=== PATIENT | female | born 1940 | race Caucasian/White ===

== ENCOUNTER 2017-01-20 08:42 | Outpatient (CLI) | payer MEDICARE, BC ==
[2017-01-20 18:18] LABS: HEMOGLOBIN A1C 0.61 g/dL
[2017-01-20 18:20] LABS: ALBUMIN/GLOBULIN RATIO 1.5 (1.0-2.2); BILIRUBIN,TOTAL 0.7 mg/dL (0.2-1.0); CALCIUM 9.4 mg/dL (8.5-10.3); CREATININE 0.6 mg/dL (0.4-1.0); POTASSIUM 4.9 mmol/L (3.5-5.0); TOTAL PROTEIN 7.1 g/dL (6.7-8.2)
== END 2017-01-20 08:43 | disposition home or self-care (01) ==
LOC: LAB.F 08:42
PROVIDERS: ATTEND Internal Medicine
DX: Z00.00 Encounter for general adult medical examination without abnormal findings (principal); Z13.9 Encounter for screening, unspecified
CPT/HCPCS: 36415; 80053; 83036; 84443

== ENCOUNTER 2018-10-01 11:10 | Day surgery (SDC) | payer MEDICARE, BC ==
[2018-10-01] MEDS ORDERED: LIDO GARGLE 30 ML BOTTLE ONE (11:38)
[2018-10-01] MEDS ORDERED: LACTATED RINGERS 1,000 ML IV ONE ×2 (11:47→11:50)
[2018-10-01] MEDS ORDERED: MIDAZOLAM 2 MG/2 ML VIAL IVP ONE (11:50)
[2018-10-01] MEDS ORDERED: fentaNYL 100 MCG/2 ML VIAL IVP ONE (11:50)
[2018-10-01] MEDS ORDERED: BENZOCAINE/TETRACAINE/BUTAMBEN 20 GM TOP ONE (11:55)
[2018-10-01] MEDS ORDERED: LIDO GARGLE 30 ML BOTTLE TOP ONE (11:55)
[2018-10-01 13:22] VITALS: BP 132/80
== END 2018-10-01 11:11 | disposition home or self-care (01) ==
LOC: SDS 11:10
PROVIDERS: ATTEND Surgery
PROC: 0DB98ZX Excision of Duodenum, Via Natural or Artificial Opening Endoscopic, Diagnostic (ICD-10-PCS; principal; 2018-10-01 12:45)
DX: Z09 Encounter for follow-up examination after completed treatment for conditions other than malignant neoplasm (principal); Z87.19 Personal history of other diseases of the digestive system; K57.12 Diverticulitis of small intestine without perforation or abscess without bleeding; K44.9 Diaphragmatic hernia without obstruction or gangrene; K21.9 Gastro-esophageal reflux disease without esophagitis; K58.9 Irritable bowel syndrome, unspecified; Z87.11 Personal history of peptic ulcer disease
CPT/HCPCS: 43239; A9270; J7120

== ENCOUNTER 2018-11-22 11:13 | Outpatient (CLI) | payer MEDICARE, BC ==
--- NOTE | 2018-11-22 16:05 | XRAY Report ---
Reason: PLEURODYMIA Procedure Date: 11/22/2018 Accession Number: [id number] / [id number] Procedure: XR - Chest 2 View X-Ray CPT Code: 98655 FULL RESULT: EXAM: CHEST RADIOGRAPHY EXAM DATE: 11/22/2018 11:31 AM. CLINICAL HISTORY: PLEURODYNIA. COMPARISON: None. TECHNIQUE: 2 views. FINDINGS: Lungs/Pleura: No focal opacities evident. No pleural effusion. No pneumothorax. Normal volumes. Mediastinum: Atherosclerotic thoracic aortic calcifications. Other: Anterior mid thoracic spine osteophytes. IMPRESSION: No consolidation evident. RADIA
== END 2018-11-22 11:14 | disposition home or self-care (01) ==
LOC: DI 11:13
PROVIDERS: ATTEND Nurse Practitioner Family
DX: R07.81 Pleurodynia (principal)
CPT/HCPCS: 71046

== ENCOUNTER 2019-01-10 09:00 | Outpatient (CLI) | payer MEDICARE, BC ==
--- NOTE | 2019-01-10 11:56 | CARDIAC PROCEDURE NOTE ---
DATE OF SERVICE: 01/10/2019 Physician: Puja Bush MD, [facility] INDICATION: Dyspnea. RESTING EKG: Normal sinus rhythm, frequent PVCs, occasional ventricular couplets, left atrial and right atrial enlargement, horizontal ST depressions of 0.5-1 mm in leads II, III, aVF, and V5 and V6. The stress test procedure was aborted (because of the abnormal resting EKG). SUMMARY: 1. Abnormal resting EKG. 2. No imaging study was ordered with this test. Therefore, because of ST- segment abnormalities present at baseline, monitoring the EKG alone, would create an interpretation of a Non-diagnostic test. 3. The PCP was contacted regarding the above, and recommendations were given to order stress testing with an imaging modality. Therefore, no exercise stressing was done today. The patient was informed of this plan. TD: 01/10/2019 11:44 MTDChadwick
== END 2019-01-10 09:01 | disposition home or self-care (01) ==
LOC: DI 09:00
PROVIDERS: ATTEND Nurse Practitioner Family
DX: R06.00 Dyspnea, unspecified (principal); R94.31 Abnormal electrocardiogram [ECG] [EKG]
CPT/HCPCS: 93016; 93017; 93018

== ENCOUNTER 2019-02-07 13:39 | Outpatient (CLI) | payer MEDICARE, BC ==
--- NOTE | 2019-02-07 15:02 | CARDIAC PROCEDURE NOTE ---
DATE OF SERVICE: 02/07/2019 Physician: Puja Bush MD, [facility] INDICATION: Abnormal EKG, dyspnea, palpitations. CARDIAC RISK FACTORS: Postmenopausal status, family history of heart disease, possibly elevated cholesterol and hypertension, although she is not on treatment for them. PROCEDURE: After signing informed consent, the patient underwent a Alejandro- protocol treadmill stress test with Echo imaging at rest and peak. RESTING HEART RATE: 82. PEAK HEART RATE: 150 (102% predicted maximum heart rate for age). RESTING BLOOD PRESSURE: 142/80. PEAK BLOOD PRESSURE: 160/80. The patient exercised for 3 minutes and 56 seconds on a Alejandro-protocol stress test. The patient was "little short of breath" at stage I and very short of breath at stage II. Oxygen saturation was 96% at stage I and dropped to 82% on room air at peak. Saturation improved to 98% on room air within 1 minute of recovery. The patient described no chest pain. She stated she felt her palpitations continuously. There was no lightheadedness or dizziness. RESTING EKG: Normal sinus rhythm, left atrial and right atrial enlargement, occasional ventricular couplets, frequent PVCs, scooping ST segment depressions in leads II, III, aVF, and V4 through V6. EKG AT PEAK: This could not be interpreted due to baseline motion. EKG at 43 seconds of recovery showed frequent PVCs, frequent ventricular couplets, deeper, but upsloping ST segment depressions in V5 and V6, unchanged abnormal ST segments in leads II, III, aVF, and V4. At 2 min of Recovery, she had a 3-beat and 5-beat run of VTach. At 3 min of Recovery, she had a 7-beat run of monomorphic VTach. Ventricular ectopy decreased to her baseline amount, after 3 min of recovery. SUMMARY: 1. Abnormal resting EKG. 2. Increased ventricular ectopy with exercise. 3. Oxygen desaturation occurs with exercise. 4. Borderline abnormal EKG changes to suggest coronary ischemia at peak. 5. Echo images reported separately. RECOMMENDATIONS: 24-hour Holter monitor is advised and evaluation of oxygen desaturation. cc: OSMAN Sotelo TD: 02/07/2019 14:53 [facility]
== END 2019-02-07 13:40 | disposition home or self-care (01) ==
LOC: DI 13:39
PROVIDERS: ATTEND Nurse Practitioner Family
DX: I49.3 Ventricular premature depolarization (principal); R06.09 Other forms of dyspnea; R94.31 Abnormal electrocardiogram [ECG] [EKG]
CPT/HCPCS: 93350

== ENCOUNTER 2023-09-07 12:46 | Outpatient (CLI) | payer BC, MEDICARE ==
--- NOTE | 2023-09-07 15:16 | DEXA Report ---
PROCEDURE: Dexa Spine and/or Hip INDICATIONS: MENAPAUSAL TECHNIQUE: Dual energy x-ray absorptiometry (DXA) was performed on a [employer] System. Regions measur ed are the AP Spine, femoral neck, and if needed forearm. COMPARISON: None FINDINGS: Lumbar Spine: Bone Mineral Density: 1.145 g/cm/cm,T score: -0.3. Left Femoral Neck: Bone Mineral Density: 0.786 g/cm/cm, T score: -1.8. Left Hip: Bone Mineral Density: 0.897 g/cm/cm,T score: -0.1. (T score greater or equal to -1.0: NORMAL) (T score from -1.1 to -2.4: OSTEOPENIA) (T score less than or equal to -2.5 to: OSTEOPOROSIS) Impression: By WHO criteria, this patient has moderate osteopenia in the femoral neck. Patients with diagnosis of osteoporosis or osteopenia should have regular bone mineral density assess ment. For those eligible for Medicare, routine testing is allowed once every 2 years. Testing frequ ency can be increased for patients who have rapidly progressing disease or for those who are receivin g medical therapy to restore bone mass. Reviewed by: Gricelda Rogers MD on 09/07/2023 3:15 PM PDT Approved by: Gricelda Rogers MD on 09/07/2023 3:15 PM PDT Station ID: [id number]
== END 2023-09-07 12:47 | disposition home or self-care (01) ==
LOC: DI 12:46
PROVIDERS: ATTEND Physician Assistant Medical
DX: Z78.0 Asymptomatic menopausal state (principal); M85.88 Other specified disorders of bone density and structure, other site

== ENCOUNTER 2023-11-08 14:40 | Outpatient (CLI) | payer MEDICARE ==
[2023-11-08 20:02] LABS: BASOPHILS # (AUTO) 0.1 10^3/uL (0.0-0.1); BASOPHILS % (AUTO) 0.9 %; EOSINOPHILS # (AUTO) 0.1 10^3/uL (0.0-0.7); EOSINOPHILS % (AUTO) 0.9 %; HCT - HEMATOCRIT 41.5 % (37.0-47.0); HGB - HEMOGLOBIN 13.1 g/dL (12.0-16.0); LYMPHOCYTES # (AUTO) 1.9 10^3/uL (1.5-3.5); LYMPHOCYTES % (AUTO) 29.7 %; MEAN CORPUSCULAR HEMOGLOBIN 30.2 pg (27.0-31.0); MEAN CORPUSCULAR HGB CONC 31.6 g/dL (32.0-36.0); MEAN CORPUSCULAR VOLUME 95.6 fL (81.0-99.0); MEAN PLATELET VOLUME 11.7 fL (7.9-10.8); MONOCYTES # (AUTO) 0.5 10^3/uL (0.0-1.0); MONOCYTES % (AUTO) 8.1 %; NEUTROPHILS # (AUTO) 3.9 10^3/uL (1.5-6.6); NEUTROPHILS % (AUTO) 60.2 %; PLT - PLATELET COUNT 244 10^3/uL (130-450); RED BLOOD COUNT 4.34 10^6/uL (4.20-5.40); RED CELL DISTRIBUTION WIDTH 13.7 % (12.0-15.0); WHITE BLOOD COUNT 6.4 x10^3/uL (4.8-10.8)
[2023-11-08 20:22] LABS: ALBUMIN 4.5 g/dL (3.2-5.5); ALBUMIN/GLOBULIN RATIO 1.9 (1.0-2.2); ALKALINE PHOSPHATASE 79 IU/L (42-121); ALT ALANINE AMINOTRANSFERASE 10 IU/L (10-60); AST ASPARTATE AMINOTRANSFERASE 15 IU/L (10-42); BILIRUBIN,TOTAL 0.5 mg/dL (0.2-1.0); BUN - BLOOD UREA NITROGEN 17 mg/dL (6-20); CALCIUM 9.9 mg/dL (8.5-10.3); CARBON DIOXIDE - CO2 29 mmol/L (21-32); CHLORIDE 102 mmol/L (101-111); CHOL/HDL RATIO 3.4 (<4.4); CHOLESTEROL 222 mg/dL; CREATININE 0.7 mg/dL (0.6-1.3); GFR - MDRD 80 (>89); GLUCOSE 102 mg/dL (74-104); HDL CHOLESTEROL 66 mg/dL; POTASSIUM 4.1 mmol/L (3.5-4.5); SODIUM 137 mmol/L (135-145); TOTAL PROTEIN 6.9 g/dL (6.4-8.9)
[2023-11-08 20:43] LABS: ESTIMATED AVERAGE GLUCOSE 123 mg/dL (70-100); HEMOGLOBIN A1c% 5.9 % (4.27-6.07)
[2023-11-08 21:21] LABS: THYROID STIMULATING HORMONE 1.86 uIU/mL (0.34-5.60)
[2023-11-08 22:46] LABS: LDL CHOLESTEROL,CALCULATED 143 mg/dL; LDL/HDL RATIO 2.2 (<4.4); TRIGLYCERIDES 65 mg/dL (48-352); VLDL CHOLESTEROL 13 mg/dL
== END 2023-11-08 14:41 | disposition home or self-care (01) ==
LOC: LAB.S 14:40
PROVIDERS: ATTEND Physician Assistant Medical
DX: Z13.9 Encounter for screening, unspecified (principal); K64.9 Unspecified hemorrhoids
CPT/HCPCS: 36415; 80053; 80061; 83036; 83721; 84443; 85025

== ENCOUNTER 2023-11-27 22:52 | Emergency (ER) | payer MEDICARE ==
[2023-11-27 23:23] LABS: BASOPHILS # (AUTO) 0.1 10^3/uL (0.0-0.1); BASOPHILS % (AUTO) 0.6 %; EOSINOPHILS % (AUTO) 0.2 %; HCT - HEMATOCRIT 39.3 % (37.0-47.0); HGB - HEMOGLOBIN 12.9 g/dL (12.0-16.0); LYMPHOCYTES # (AUTO) 1.8 10^3/uL (1.5-3.5); LYMPHOCYTES % (AUTO) 14.4 %; MEAN CORPUSCULAR HEMOGLOBIN 30.7 pg (27.0-31.0); MEAN CORPUSCULAR HGB CONC 32.8 g/dL (32.0-36.0); MEAN CORPUSCULAR VOLUME 93.6 fL (81.0-99.0); MEAN PLATELET VOLUME 10.8 fL (7.9-10.8); MONOCYTES # (AUTO) 0.9 10^3/uL (0.0-1.0); MONOCYTES % (AUTO) 7.5 %; NEUTROPHILS # (AUTO) 9.4 10^3/uL (1.5-6.6); NEUTROPHILS % (AUTO) 76.9 %; PLT - PLATELET COUNT 241 10^3/uL (130-450); RED CELL DISTRIBUTION WIDTH 14.1 % (12.0-15.0); WHITE BLOOD COUNT 12.2 x10^3/uL (4.8-10.8)
[2023-11-27 23:28] LABS: INR 1.3 (0.8-1.2); PT - PROTHROMBIN TIME 14.2 secs (9.9-12.6)
[2023-11-27 23:37] LABS: ALBUMIN 4.3 g/dL (3.2-5.5); ALBUMIN/GLOBULIN RATIO 2.9 (1.0-2.2); BILIRUBIN,TOTAL 0.4 mg/dL (0.2-1.0); CALCIUM 9.9 mg/dL (8.5-10.3); CREATININE 0.6 mg/dL (0.6-1.3); POTASSIUM 4.3 mmol/L (3.5-4.5); TOTAL PROTEIN 5.8 g/dL (6.4-8.9)
--- NOTE | 2023-11-28 00:58 | ED Physician Documentation ---
PD HPI GI BLEED - Stated complaint Stated Complaint: ABD PX/GI - Chief complaint Chief Complaint: Abd Pain - History obtained from History obtained from: Patient - Additional information Additional information: HPI from patient. Patient complains of 2 episodes of dark, black tarry stool this evening. She denies any pain including abdominal pain. Denies nausea, vomiting. Denies fever. Patient's past medical history includes irritable bowel syndrome, hiatal hernia. Patient had her tetanus shot yesterday and wonders if the stool color changes are related to that. She says she has a history many years ago of GI bleeding. She denies any liver problems, denies heavy/regular alcohol use.Patient does not take any blood-thinning medication PD PAST MEDICAL HISTORY - Past Medical History Cardiovascular: Hypertension, High cholesterol Respiratory: Pneumonia Endocrine/Autoimmune: None GI: GERD, GI bleed, Ulcers : None HEENT: Chronic vision loss Psych: None Musculoskeletal: Osteoarthritis Derm: None - Past Surgical History General: Appendectomy /[employer]: Hysterectomy, Oophrectomy - Present Medications Home Medications: Ambulatory Orders Medication Instructions Recorded Confirmed Lansoprazole [Prevacid] 15 mg PO BID 09/28/18 11/27/23 Clobetasol 0.05% Oint [Temovate 1 applic TOP DAILY 11/27/23 11/27/23 0.05% Oint] Loperamide [Imodium] 2 cap PO DAILY PRN 11/27/23 11/27/23 Losartan Potassium 1 tab PO DAILY 11/27/23 11/27/23 estradioL vaginal [Estrace vaginal] 1 applic TOP DAILY 11/27/23 11/27/23 - Allergies Allergies/Adverse Reactions: Allergies Allergy/AdvReac Type Severity Reaction Status Date / Time codeine AdvReac Unknown Verified 11/27/23 23:02 - Social History Does the pt smoke?: No Smoking Status: Never smoker Does the pt drink ETOH?: No ETOH Use: Wine - Immunizations Immunizations are current?: Yes PD ED PE NORMAL - Vitals Vital signs reviewed: Yes - General General: Alert and oriented X 3, No acute distress, Well developed/nourished - Cardiac Cardiac: RRR, No murmur - Respiratory Respiratory: No respiratory distress, Clear bilaterally - Abdomen Abdomen: Normal bowel sounds, Soft, Non tender, Non distended - Derm Derm: Normal color Results - Vitals Vitals: Vital Signs - 24 hr 11/27/23 11/28/23 22:54 01:25 Temperature 36.2 C L 36.8 C Heart Rate 50 L 53 L Respiratory 18 18 Rate Blood Pressure 151/68 H 146/75 H O2 Saturation 96 98 Oxygen O2 Source Room air - Labs Labs: Laboratory Tests 11/27/23 11/27/23 11/27/23 23:15 23:15 23:15 WBC 12.2 H RBC 4.20 Hgb 12.9 Hct 39.3 MCV 93.6 MCH 30.7 MCHC 32.8 RDW 14.1 Plt Count 241 MPV 10.8 Neut # (Auto) 9.4 H Lymph # (Auto) 1.8 [place] # (Auto) 0.9 Eos # (Auto) 0.0 Baso # (Auto) 0.1 Absolute Nucleated RBC 0.00 Nucleated RBC % 0.0 PT 14.2 H INR 1.3 H Sodium Potassium Chloride Carbon Dioxide Anion Gap BUN Creatinine Estimated GFR (MDRD) Glucose Calcium Total Bilirubin AST ALT Alkaline Phosphatase Total Protein Albumin Globulin Albumin/Globulin Ratio Blood Type O POSITIVE Antibody Screen NEGATIVE 11/27/23 23:15 WBC RBC Hgb Hct MCV MCH MCHC RDW Plt Count MPV Neut # (Auto) Lymph # (Auto) [place] # (Auto) Eos # (Auto) Baso # (Auto) Absolute Nucleated RBC Nucleated RBC % PT INR Sodium 138 Potassium 4.3 Chloride 103 Carbon Dioxide 29 Anion Gap 6.0 BUN 40 H Creatinine 0.6 Estimated GFR (MDRD) 96 Glucose 156 H Calcium 9.9 Total Bilirubin 0.4 AST 13 ALT 10 Alkaline Phosphatase 71 Total Protein 5.8 L Albumin 4.3 Globulin 1.5 L Albumin/Globulin Ratio 2.9 H Blood Type Antibody Screen PD Medical Decision Making - ED course Complexity details: reviewed results, re-evaluated patient, considered differential, d/w patient ED course: . Normal hemoglobin (12.9). This is without significant change when compared to 13.1 on a 11/08/2023 outpatient draw. More relevant is an elevated BUN (40) with normal creatinine (0.6). Her BUN was 17 on the 11/08/2023 draw. This pattern of high BUN with normal creatinine would be would support the suspicion of UGIB. However, given her stable H&H, further testing can take place in the outpatient setting. I reviewed these test results with her. I emphasized that she will need further testing, particularly to trend her H&H as well as her kidney function tests. Along these lines, I instructed her to contact her PCP in the morning to arrange for next available appointment for reevaluation. She says she might be able to get in to see her GI sooner, which would be ideal. Certainly, should she have any sudden increase in her black and/or bloody stool, or if she develops ne w/concerning signs/symptoms (such as abdominal pain, vomiting blood, lightheadedness, dyspnea), she is encouraged to return immediately to the emergency department. Departure - Departure Disposition: 01 Home, Self Care Clinical Impression: Gastrointestinal bleed Qualifiers: GI bleed type/associated pathology: unspecified gastrointestinal hemorrhage type Qualified Code(s): K92.2 - Gastrointestinal hemorrhage, unspecified Condition: Good Instructions: ED Bleed UGI Stable Comments: At this time, there are no concerning findings on justine's blood tests. Most relevantly, your red blood cell levels (hemoglobin and hematocrit) are within normal range. Your kidney function tests were in an abnormal pattern which is sometimes seen with upper gastrointestinal bleeding (as blood travels from the stomach or duodenum through the small and large intestines, it gets broken down into a black, tar-like substance and some of the byproducts of red cell breakdown get absorbed back into the blood stream. One such substance is blood urea nitrogen (BUN), and your BUN level was elevated tonight despite a normal creatinine (creatinine is another kidney test)). Thus, this is another piece of evidence that would suggest an upper GI bleed, but your red blood cell levels being normal argues against brisk bleeding or bleeding to a dangerous extent. Contact your primary care provider when the office is next open to arrange for next available appointment. They will likely recommend repeating some of these tests, in particular your red blood cell levels as well as your kidney function tests, in the next few days for comparative purposes. If you continue to have dark, black tarry stool and/or develop maroon or bloody stool, and/or your red blood cell levels decrease on repeat and/or your BUN goes up with a normal creatinine any of these would be cause for concern for ongoing bleeding and might prompt further testing such as an upper and lower endoscopy. Please realize the amount of change of these parameters would also influence the acuity of the situation (gradual changes would be approached differently than sudden, dramatic changes, for example) Forms: PCP List Discharge Date/Time: 11/28/23 01:30
[2023-11-28 01:54] VITALS: BP 146/75; O2SAT 98
== END 2023-11-28 01:30 | disposition home or self-care (01) ==
LOC: ED 22:52
DX: K92.2 Gastrointestinal hemorrhage, unspecified (principal); I10 Essential (primary) hypertension; E78.00 Pure hypercholesterolemia, unspecified; Z79.899 Other long term (current) drug therapy
CPT/HCPCS: 36415; 80053; 85025; 85610; 86850; 86900; 86901; 99283

== ENCOUNTER 2023-12-01 13:20 | Outpatient (CLI) | payer MEDICARE ==
[2023-12-01 19:52] LABS: BASOPHILS # (AUTO) 0.1 10^3/uL (0.0-0.1); BASOPHILS % (AUTO) 0.8 %; EOSINOPHILS # (AUTO) 0.1 10^3/uL (0.0-0.7); HCT - HEMATOCRIT 33.9 % (37.0-47.0); HGB - HEMOGLOBIN 10.7 g/dL (12.0-16.0); LYMPHOCYTES % (AUTO) 31.5 %; MEAN CORPUSCULAR HGB CONC 31.6 g/dL (32.0-36.0); MEAN PLATELET VOLUME 11.8 fL (7.9-10.8); MONOCYTES # (AUTO) 0.6 10^3/uL (0.0-1.0); MONOCYTES % (AUTO) 9.5 %; NEUTROPHILS # (AUTO) 3.6 10^3/uL (1.5-6.6); NEUTROPHILS % (AUTO) 56.9 %; PLT - PLATELET COUNT 224 10^3/uL (130-450); RED BLOOD COUNT 3.57 10^6/uL (4.20-5.40); WHITE BLOOD COUNT 6.3 x10^3/uL (4.8-10.8)
[2023-12-01 20:21] LABS: ALBUMIN 4.3 g/dL (3.2-5.5); ALBUMIN/GLOBULIN RATIO 1.9 (1.0-2.2); BILIRUBIN,TOTAL 0.4 mg/dL (0.2-1.0); CALCIUM 9.6 mg/dL (8.5-10.3); CREATININE 0.6 mg/dL (0.6-1.3); POTASSIUM 4.7 mmol/L (3.5-4.5); TOTAL PROTEIN 6.6 g/dL (6.4-8.9)
== END 2023-12-01 13:21 | disposition home or self-care (01) ==
LOC: LAB.S 13:20
PROVIDERS: ATTEND Registered Nurse
DX: K64.4 Residual hemorrhoidal skin tags (principal); Z87.19 Personal history of other diseases of the digestive system
CPT/HCPCS: 36415; 80053; 85025

== ENCOUNTER 2024-01-10 12:13 | Outpatient (CLI) | payer MEDICARE ==
[2024-01-10 12:27] LABS: HCT - HEMATOCRIT 37.5 % (37.0-47.0); HGB - HEMOGLOBIN 11.4 g/dL (12.0-16.0); MEAN CORPUSCULAR HEMOGLOBIN 27.6 pg (27.0-31.0); MEAN CORPUSCULAR HGB CONC 30.4 g/dL (32.0-36.0); MEAN CORPUSCULAR VOLUME 90.8 fL (81.0-99.0); MEAN PLATELET VOLUME 10.5 fL (7.9-10.8); RED BLOOD COUNT 4.13 10^6/uL (4.20-5.40); RED CELL DISTRIBUTION WIDTH 14.1 % (12.0-15.0); WHITE BLOOD COUNT 6.5 x10^3/uL (4.8-10.8)
[2024-01-10 13:09] LABS: FERRITIN 5.6 ng/mL (11.0-306.8)
== END 2024-01-10 12:14 | disposition home or self-care (01) ==
LOC: LAB 12:13
PROVIDERS: ATTEND Registered Nurse
DX: K92.1 Melena (principal)
CPT/HCPCS: 36415; 82728; 83540; 84466; 85027

== ENCOUNTER 2024-02-22 08:00 | Outpatient (CLI) | payer MEDICARE ==
--- NOTE | 2024-02-22 13:56 | XRAY Report ---
PROCEDURE: Chest 2V INDICATIONS: PALPITATIONS TECHNIQUE: 2 views of the chest were acquired. COMPARISON: Chest x-ray 11/22/2018 FINDINGS: Aortic arch calcifications. The heart size and cardiomediastinal silhouette are within normal limits. There is no focal lung consolidation, pneumothorax, or pleural effusion. No acute osseous abnormality. Diffuse idiopathic skeletal hyperostosis of the thoracic spine. IMPRESSION: No acute cardiothoracic process. Reviewed by: Miguel Angel Calloway MD on 02/22/2024 1:54 PM PDT Approved by: Miguel Angel Calloway MD on 02/22/2024 1:54 PM PDT Station ID: [id number]
== END 2024-02-22 23:59 | disposition home or self-care (01) ==
LOC: DI.S 08:00
PROVIDERS: ATTEND Physician Assistant
DX: R00.2 Palpitations (principal)

== ENCOUNTER 2024-02-23 10:52 | Outpatient (CLI) | payer MEDICARE ==
[2024-02-23 11:07] LABS: BASOPHILS # (AUTO) 0.1 10^3/uL (0.0-0.1); EOSINOPHILS # (AUTO) 0.1 10^3/uL (0.0-0.7); EOSINOPHILS % (AUTO) 0.9 %; HCT - HEMATOCRIT 37.6 % (37.0-47.0); HGB - HEMOGLOBIN 11.4 g/dL (12.0-16.0); LYMPHOCYTES # (AUTO) 1.8 10^3/uL (1.5-3.5); LYMPHOCYTES % (AUTO) 26.3 %; MEAN CORPUSCULAR HEMOGLOBIN 26.8 pg (27.0-31.0); MEAN CORPUSCULAR HGB CONC 30.3 g/dL (32.0-36.0); MEAN CORPUSCULAR VOLUME 88.5 fL (81.0-99.0); MEAN PLATELET VOLUME 10.7 fL (7.9-10.8); MONOCYTES # (AUTO) 0.6 10^3/uL (0.0-1.0); MONOCYTES % (AUTO) 8.9 %; NEUTROPHILS # (AUTO) 4.4 10^3/uL (1.5-6.6); NEUTROPHILS % (AUTO) 62.8 %; PLT - PLATELET COUNT 260 10^3/uL (130-450); RED BLOOD COUNT 4.25 10^6/uL (4.20-5.40); RED CELL DISTRIBUTION WIDTH 15.8 % (12.0-15.0)
[2024-02-23 11:19] LABS: BUN - BLOOD UREA NITROGEN 17 mg/dL (6-20); CALCIUM 9.5 mg/dL (8.5-10.3); CARBON DIOXIDE - CO2 28 mmol/L (21-32); CHLORIDE 104 mmol/L (101-111); CREATININE 0.6 mg/dL (0.6-1.3); GFR - MDRD 96 (>89); GLUCOSE 111 mg/dL (74-104); IRON 36 ug/dL (50-212); POTASSIUM 4.2 mmol/L (3.5-4.5); SODIUM 138 mmol/L (135-145)
[2024-02-23 11:20] LABS: % IRON SATURATION 7 % (20-50); ALBUMIN 4.3 g/dL (3.2-5.5); ALBUMIN/GLOBULIN RATIO 1.7 (1.0-2.2); ALKALINE PHOSPHATASE 81 IU/L (42-121); ALT ALANINE AMINOTRANSFERASE 7 IU/L (10-60); AST ASPARTATE AMINOTRANSFERASE 14 IU/L (10-42); BILIRUBIN,TOTAL 0.5 mg/dL (0.2-1.0); CHOL/HDL RATIO 3.2 (<4.4); CHOLESTEROL 217 mg/dL; HDL CHOLESTEROL 68 mg/dL; LDL CHOLESTEROL,CALCULATED 136 mg/dL; TOTAL IRON BINDING CAPACITY 518 ug/dL (250-450); TOTAL PROTEIN 6.8 g/dL (6.4-8.9); TRANSFERRIN 370 mg/dL (203-362); TRIGLYCERIDES 63 mg/dL; VLDL CHOLESTEROL 13 mg/dL
[2024-02-23 11:35] LABS: THYROID STIMULATING HORMONE 1.75 uIU/mL (0.34-5.60)
[2024-02-23 11:42] LABS: FERRITIN 7.9 ng/mL (11.0-306.8)
== END 2024-02-23 10:53 | disposition home or self-care (01) ==
LOC: LAB 10:52
PROVIDERS: ATTEND Physician Assistant
DX: R00.2 Palpitations (principal)
CPT/HCPCS: 36415; 80053; 80061; 82728; 83540; 83721; 84436; 84443; 84466; 84480; 85025